=== PATIENT | male | born 1985 | race Caucasian/White ===

== ENCOUNTER 2025-05-23 11:02 | Emergency (ER) | payer MEDICAID, SELFPAY ==
[2025-05-23 11:07] VITALS: BP 139/93
[2025-05-23] MEDS: FLEXERIL 10 MG PO (11:42)
--- NOTE | 2025-05-23 12:25 | ED.MUSCINJ ---
HPI-Injury
General
Chief Complaint: Musculo-Skeletal Complaint
Time Seen by Provider: 05/23/25 11:24
Nursing documentation reviewed up to this point in time: agreed with
History of Present Illness-Injury
Initial Injury comments:
39-year-old male presents to the ER for evaluation of pain in his neck and left shoulder which has been ongoing since last week. Patient was lifting a heavy box at work. He reported immediate discomfort in his left posterior shoulder and neck
area. He states that since this time he has had significant pain in certain positions which has prevented him from getting good sleep. He states that he can move his arm but will occasionally have pain radiating down into his forearm. He also has
noted twitching to his upper extremity which is new since the injury. He denies midline neck pain. No syncope. He took 1600 mg of ibuprofen several times a day for a few days and had resultant stomach upset-he has not had any ibuprofen since
this. He had some good relief with topical pain relieving patch. He is right-handed. Patient reports that he is in recovery. He also recently quit smoking in anticipation of the of his child
Review of Systems
Review of Systems
Allergies reviewed?: Yes
Phy Exam
Physical Exam
Physical Exam:
Vital signs reviewed, patient is awake, alert, appears in no acute distress, no midline pain on palpation of cervical spine, significant muscle spasm noted in left trapezius as compared to right trapezius, palpation along the left rhomboids
reproduces patient's symptoms, no palpable joint effusion to bilateral shoulders, gross visual inspection of left shoulder appears normal without erythema, patient without focal pain on palpation over the shoulder joint, no crepitus or laxity on
passive range of motion of the left shoulder, he has no limitation in active range of motion of the left shoulder, no pain on palpation of distal upper arm, elbow, forearm, wrist or hand, brisk cap refill present to the digits bilateral hands, he
has equal strength in pincer, interosseous motor function and hand grasp bilaterally with intact sensation to light touch, GCS is 15
Injury Course
Orders/Labs/Results
Orders:
Orders
05/23/25 11:36
CR Cervical Spine 2 or 3 Vw Urgent
Comment:
Reason For Exam: trauma
CR Shoulder, Trauma - Left Urgent
Comment:
Reason For Exam: trauma
05/23/25 11:37
Cyclobenzaprine HCl [Flexeril] 10 mg PO NOW STA
MDM/Problems Addressed
Differential Diagnosis Includes:
Differential diagnosis to consider but not limited to cervical radiculopathy, muscle sprain, strain, rotator cuff injury, fracture along with other etiologies considered
Chronic conditions affecting care:
None
*Radiology
Radiology exam reviewed: preliminary read by ED provider (I independently viewed and interpreted x-rays of cervical spine showing no fracture, straightening of the cervical lordosis. I independently viewed and interpreted x-ray left shoulder
showing no dislocation, no fracture.)
*Pulse Oximetry
SaO2: 99
Oxygen Mode of Delivery: Room air
Patient hypoxic: no
*Critical Care Note
Total Time (30-74mins, 75-104mins- exclusive of procedures): Not Applicable
Update Note
Update Note:
Patient described type of pain patch that he had used as looking like a 'dog bone. Doing it and research it appears as though this is a thermic care heat wrap. Patient is currently on Medicaid, will give prescription since this did help his pain
significantly. Will obtain screening x-rays. I discussed with patient and present at bedside most likely etiology of symptoms related to significant muscle strain, although he is having some component of potential cervical radiculopathy. I
discussed with him benefit of addressing muscle spasm along with use of anti-inflammatories, although not in excessive doses that he had been taking. Will try Flexeril here while awaiting x-rays. Patient agrees with plan at current
1310: I reviewed with patient and present at bedside very reassuring x-rays. I discussed with them most likely muscular etiology of symptoms and supportive treatment of same. I discussed with him medication usage. I advised him to only use
medication as it is written for his own safety. Patient expressed understanding of full discharge instructions along with benefit of follow-up with primary care physician. He and his have no questions at the current time.
ED Attending Note
-
Portions of this chart may have been created with voice recognition software.� Occasional wrong word or��sound alike� substitutions may have occurred due to the inherent limitations of voice recognition software.
Discharge Plan
Departure
Patient Disposition: Home (Routine Discharge)
Date of Disposition: 05/23/25
Time of Disposition: 13:10
Patient with high blood pressure during this ER visit?: Yes
Discharge Problem:
Muscle spasm
Instructions: Muscle spasm - ED (DC), BLOOD PRESSURE
Prescriptions:
New
(DME) [employer] HeatWrap Joint Bandage
See Rx Instructions .Route Qty: 4 1RF
Rx Instructions:
As directed
cyclobenzaprine 10 mg tablet
10 mg PO TIDPRN PRN (Reason: muscle spasm) Qty: 13 0RF
Referrals:
UNKNOWN - PT DOES,NOT KNOW [Family Provider]
Activity Restrictions/Additional Instructions:
Please contact your primary care office in the morning to schedule appointment for reevaluation and further care-both physical therapy referral and to recheck your blood pressure which was slightly elevated today. You may use Tylenol as needed for
pain relief. Please use Flexeril as prescribed for treatment of muscle spasm. Please also use topical heat wraps as prescribed as per package instructions for additional pain relief. Please try to avoid lifting more than 10 pounds with your left
arm until your symptoms improve. Return to the ER for any concerns
Interventions
Interventions:
*Risk Screen - Suicide Last Done: 05/23/25 11:07
*General Assessment Last Done: 05/23/25 11:07
*Neglect/Abuse Screening Last Done: 05/23/25 11:07
*ED COVID-19 Vaccine History Last Done: 05/23/25 11:25
*ED Influenza Vaccine History Last Done: 05/23/25 11:25
[facility] Fall Risk Assessment Tool Last Done: 05/23/25 11:14
*Nursing Disposition Last Done: 05/23/25 13:16
ED-Musculoskeletal Assessment Last Done: 05/23/25 11:25
Discharge Date and Time
Discharge Date/Time: 05/23/25 13:17
Print Language: [id number]
[2025-05-23 13:16] VITALS: BP 137/88
== END 2025-05-23 13:17 | disposition home or self-care (01) ==
LOC: EMR 11:02
PROVIDERS: EMERGENCY PHYSICIAN Emergency Medicine
DX: M62.838 Other muscle spasm (principal); X50.0XXA Overexertion from strenuous movement or load, initial encounter; Y99.0 Civilian activity done for income or pay; Z87.891 Personal history of nicotine dependence
CPT/HCPCS: 99283; 72040; 73030